=== PATIENT | female | born 1930 | race Caucasian/White ===

== ENCOUNTER 2017-06-23 12:20 | Emergency (ER) | payer MEDICARE, OTHER ==
--- NOTE | 2017-06-23 14:24 | ER Document Report ---
ED Medical Screen (RME) - General Chief Complaint: Dizziness Stated Complaint: DIZZINESS Time Seen by Provider: 06/23/17 14:18 TRAVEL OUTSIDE OF THE [place] IN LAST 30 DAYS: No - HPI Notes: 06/23/17 14:19 Patient is an 87-year-old female with a history of PAD, CHF, diabetes type 2, vertigo who presents to the ED complaining of feeling dizzy that began this morning when she woke up. Patient states that she did take some of her meclizine with minimal relief. Patient states that the dizziness is worsened with movement. Patient states that this is her third episode of this dizziness in the last 3 weeks. Patient was scheduled to see her primary care doctor for dizziness today it is exacerbated this morning and she needed to come to the emergency department. Patient states that she is also scheduled for an either a SI joint injection vs LESI on the right side tomorrow. Patient states that she has been eating and drinking without difficulties. She is urinating normally and having normal bowel movements. Patient states that she does have a stent placed in the artery in her left leg, but has not had any cardiac stents or bypass performed in the past. Denies any headache, fever, head injury , neck pain, changes in vision/speech/mentation/hearing, URI, sore throat, chest pain, palpitations, syncope, cough, shortness of breath, wheeze, dyspnea, abdominal pain, nausea/vomiting/diarrhea, urinary retention, dysuria, hematuria , saddle anesthesia, muscle paralysis/weakness, or rash. I have treated and performed a rapid initial assessment of this patient. A comprehensive ED assessment and evaluation of the patient, analysis of test results and completion of medical decision making process will be conducted by additional ED providers. PHYSICAL EXAMINATION: GENERAL: Well-appearing, well-nourished and in no acute distress. A&Ox4. Answers questions appropriately. Eyes: clear conjunctiva, PERRLA. LUNGS: Breath sounds clear to auscultation bilaterally and equal. No wheezes rales or rhonchi. HEART: Regular rate and rhythm without murmurs, rubs, gallops. Extremities: No cyanosis, clubbing, or edema b/l. NEUROLOGICAL: Normal speech. PSYCH: Normal mood, normal affect. - Related Data Allergies/Adverse Reactions: diclofenac sodium [From Voltaren] Allergy (Unknown, Verified 06/23/17 12:25) Past Medical History - Social History Chew tobacco use (# tins/day): No Frequency of alcohol use: None Drug Abuse: None - Past Medical History Cardiac Medical History: Reports: Hx Hypertension Endocrine Medical History: Reports: Hx Diabetes Mellitus Type 2 Renal/ Medical History: Denies: Hx Peritoneal Dialysis Musculoskeltal Medical History: Reports Hx Arthritis Past Surgical History: Reports: Hx Appendectomy, Hx Hysterectomy, Hx Orthopedic Surgery - left shoulder/left knee, Hx Tonsillectomy - Immunizations Hx Diphtheria, Pertussis, Tetanus Vaccination: Yes Physical Exam - Vital signs Vitals: Temp Pulse Resp BP Pulse Ox 97.6 F 59 L 18 127/55 H 99 06/23/17 12:29 06/23/17 12:29 06/23/17 12:29 06/23/17 12:29 06/23/17 12:29 Course - Vital Signs Vital signs: Temp Pulse Resp BP Pulse Ox 97.6 F 59 L 18 127/55 H 99 06/23/17 12:29 06/23/17 12:29 06/23/17 12:29 06/23/17 12:29 06/23/17 12:29
[2017-06-23 14:58] LABS: ABSOLUTE BASOPHILS # (AUTO) 0.1 10^3/uL (0.0-0.2); ABSOLUTE EOSINOPHILS # (AUTO) 0.3 10^3/uL (0.0-0.6); ABSOLUTE LYMPHOCYTES (AUTO) 2.6 10^3/uL (0.5-4.7); ABSOLUTE MONOCYTES (AUTO) 0.6 10^3/uL (0.1-1.4); ABSOLUTE NEUT (AUTO) 5.9 10^3/uL (1.7-8.2); BASOPHILS % (AUTO) 0.8 % (0-2); HEMATOCRIT 47.3 % (36.0-47.0); HEMOGLOBIN 15.8 g/dL (12.0-15.5); LYMPHOCYTES % (AUTO) 27.4 % (13-45); MEAN CORPUSCULAR HEMOGLOBIN 31.9 pg (27.0-33.4); MEAN CORPUSCULAR HGB CONC 33.5 g/dL (32.0-36.0); MEAN CORPUSCULAR VOLUME 95 fl (80-97); MONOCYTES % (AUTO) 5.8 % (3-13); PLATELET COUNT 137 10^3/uL (150-450); RED BLOOD COUNT 4.97 10^6/uL (3.72-5.28); RED CELL DISTRIBUTION WIDTH 12.9 % (11.5-14.0); TOTAL CELLS COUNTED % (AUTO) 100 %; WHITE BLOOD COUNT 9.4 10^3/uL (4.0-10.5)
[2017-06-23 15:01] LABS: ALANINE AMINOTRANSFERASE 17 U/L (9-52); ALBUMIN 4.4 g/dL (3.5-5.0); ALKALINE PHOSPHATASE 74 U/L (38-126); ANION GAP 8 (5-19); ASPARTATE AMINO TRANSFERASE 29 U/L (14-36); BILIRUBIN,DIRECT 0.5 mg/dL (0.0-0.4); BILIRUBIN,TOTAL 0.5 mg/dL (0.2-1.3); BLOOD UREA NITROGEN 25 mg/dL (7-20); CALCIUM 9.9 mg/dL (8.4-10.2); CARBON DIOXIDE 31 mmol/L (22-30); CHLORIDE 106 mmol/L (98-107); CREATINE KINASE 52 U/L (30-135); GLUCOSE 84 mg/dL (75-110); POTASSIUM 5.1 mmol/L (3.6-5.0)
[2017-06-23 15:11] LABS: CREATINE KINASE MB 1.37 ng/mL (<4.55)
[2017-06-23 15:12] LABS: TROPONIN I < 0.012 ng/mL
--- NOTE | 2017-06-23 15:55 | RADIOLOGY REPORT (SQ) ---
EXAM DESCRIPTION: CHEST SINGLE VIEW COMPLETED DATE/TIME: 06/23/2017 3:48 pm REASON FOR STUDY: dizziness COMPARISON: 02/11/2011 EXAM PARAMETERS: NUMBER OF VIEWS: One view. TECHNIQUE: Single frontal radiographic view of the chest acquired. RADIATION DOSE: NA LIMITATIONS: None. FINDINGS: LUNGS AND PLEURA: There is mild hyperexpansion of the lungs. There is no pulmonary infilt rate or pleural effusion. No mass is present. MEDIASTINUM AND HILAR STRUCTURES: No masses. Contour normal. HEART AND VASCULAR STRUCTURES: Heart normal in size. Normal vasculature. BONES: No acute findings. HARDWARE: None in the chest. OTHER: No other significant finding. IMPRESSION: Chronic lung changes with no acute cardiopulmonary disease. TECHNICAL DOCUMENTATION: JOB ID: [id number] [employer]- All Rights Reserved Reading location - IP/workstation name: [email or web address]
--- NOTE | 2017-06-23 15:59 | RADIOLOGY REPORT (SQ) ---
EXAM DESCRIPTION: CT HEAD WITHOUT COMPLETED DATE/TIME: 06/23/2017 3:30 pm REASON FOR STUDY: dizziness COMPARISON: July 2015 TECHNIQUE: Axial images acquired through the brain without intravenous contrast. Images reviewed wi th bone, brain and subdural windows. Images stored on PACS. All CT scanners at this facility use dose modulation, iterative reconstruction, and/or weight based d osing when appropriate to reduce radiation dose to as low as reasonably achievable (ALARA). [facility]: Dose Right [facility]: CareDose [facility]: Dose Right [facility]: Teradose 4D [facility]: [employer] RADIATION DOSE: CT Rad equipment meets quality standard of care and radiation dose reduction techniq ues were employed. CTDIvol: 64.6 mGy. DLP: 1034 mGy-cm. mGy. LIMITATIONS: None. FINDINGS: VENTRICLES: Normal size and contour. CEREBRUM: No masses. No hemorrhage. No midline shift. No evidence for acute infarction. Normal gra y/white matter differentiation. No areas of low density in the white matter. CEREBELLUM: No masses. No hemorrhage. No alteration of density. No evidence for acute infarction. EXTRAAXIAL SPACES: No fluid collections. No masses. ORBITS AND GLOBE: No intra- or extraconal masses. Normal contour of globe without masses. CALVARIUM: No fracture. PARANASAL SINUSES: No fluid or mucosal thickening. SOFT TISSUES: No mass or hematoma. OTHER: No other significant finding. IMPRESSION: NORMAL BRAIN CT WITHOUT CONTRAST. EVIDENCE OF ACUTE STROKE: NO. COMMENT: Quality ID # [id number]: Final reports with documentation of one or more dose reduction techniques (e.g., Automated exposure control, adjustment of the mA and/or kV according to patient size, use of iterative reconstruction technique) TECHNICAL DOCUMENTATION: JOB ID: [id number] [employer]- All Rights Reserved Reading location - IP/workstation name: [email or web address]
--- NOTE | 2017-06-23 19:23 | ER Document Report ---
ED General - General Chief Complaint: Dizziness Stated Complaint: DIZZINESS Time Seen by Provider: 06/23/17 14:18 Notes: Patient is an 87-year-old female who presents with 10 days of intermittent lightheadedness and near syncope worse today than the prior days. Patient reports a long-standing history of intermittent episodes in which she feels that she may pass out or become severely lightheaded. However she notes that they are normally not this persistent or this severe. At the time of my assessment she currently denies any ongoing symptoms. She states she feels well at this time. She is clear to state that these are not vertiginous symptoms but rather a sensation of dizziness, lightheadedness and feeling like she may pass out if she were to stand up. She has not seen her primary doctor regarding today's concerns. No recent medication adjustments. She denies any chest pain, shortness of breath, focal weakness, numbness, or ataxia. No head trauma. No vomiting. TRAVEL OUTSIDE OF THE [place] IN LAST 30 DAYS: No - Related Data Allergies/Adverse Reactions: diclofenac sodium [From Voltaren] Allergy (Unknown, Verified 06/23/17 12:25) Past Medical History - General Information source: Patient - Social History Smoking Status: Former Smoker Chew tobacco use (# tins/day): No Frequency of alcohol use: None Drug Abuse: None Lives with: Family Family History: Reviewed & Not Pertinent Patient has suicidal ideation: No Patient has homicidal ideation: No - Past Medical History Cardiac Medical History: Reports: Hx Hypertension Endocrine Medical History: Reports: Hx Diabetes Mellitus Type 2 Renal/ Medical History: Denies: Hx Peritoneal Dialysis Musculoskeltal Medical History: Reports Hx Arthritis Past Surgical History: Reports: Hx Appendectomy, Hx Hysterectomy, Hx Orthopedic Surgery - left shoulder/left knee, Hx Tonsillectomy - Immunizations Hx Diphtheria, Pertussis, Tetanus Vaccination: Yes Hx Pneumococcal Vaccination: 01/12/11 Review of Systems - Review of Systems Notes: Constitutional: Negative for fever. HENT: Negative for sore throat. Eyes: Negative for visual changes. Cardiovascular: Negative for chest pain. Positive for lightheadedness Respiratory: Negative for shortness of breath. Gastrointestinal: Negative for abdominal pain, vomiting or diarrhea. Genitourinary: Negative for dysuria. Musculoskeletal: Negative for back pain. Skin: Negative for rash. Neurological: Negative for headaches, weakness or numbness. 10 point ROS negative except as marked above and in HPI. Physical Exam - Vital signs Vitals: Temp Pulse Resp BP Pulse Ox 97.6 F 59 L 18 127/55 H 99 06/23/17 12:29 06/23/17 12:29 06/23/17 12:29 06/23/17 12:29 06/23/17 12:29 Interpretation: Bradycardic Notes: PHYSICAL EXAMINATION: GENERAL: Well-appearing, well-nourished and in no acute distress. HEAD: Atraumatic, normocephalic. EYES: Pupils equal round and reactive to light, extraocular movements intact, sclera anicteric, conjunctiva are normal. ENT: nares patent, oropharynx clear without exudates. Moderately dry mucous membranes. NECK: Normal range of motion, supple without lymphadenopathy LUNGS: Breath sounds clear to auscultation bilaterally and equal. No wheezes rales or rhonchi. HEART: Regular rate and rhythm without murmurs ABDOMEN: Soft, nontender, normoactive bowel sounds. No guarding, no rebound. No masses appreciated. EXTREMITIES: Normal range of motion, no pitting or edema. No cyanosis. NEUROLOGICAL: Face symmetric. Tongue protrudes midline. Extraocular motions intact. Pupils are 2 mm and equally reactive. Normal speech, mild gait instability no ataxia. 5 out of 5 strength in both the distal and proximal upper and lower extremities bilaterally. Sensation is grossly intact throughout. Finger to nose testing normal. Pronator drift normal. PSYCH: Normal mood, normal affect. SKIN: Warm, Dry, normal turgor, no rashes or lesions noted. Course - Re-evaluation Re-evalutation: 06/23/17 19:20 Patient presents with signs and symptoms most consistent with symptomatic bradycardia and near syncope. The patient's heart rate today has remained persistently in the low 50s despite the fact that she has not yet even taken her metoprolol succinate today. Patient has had intermittent similar symptoms over the last 10 days. Her clinical history is not consistent with acute vertigo as she denies any true vertiginous symptoms, does express her symptoms more as being a sensation of lightheadedness are about to pass out. She is repeatedly had similar symptoms over the last several years but never to this degree of severity. Laboratories, EKG, chest x-ray and a CT of the head obtained in triage are all unremarkable. The remainder of the patient's vitals are otherwise within normal limits. She has no focal neurologic deficits on examination including finger to nose, heel to rivera, and she is able to ambulate without significant ataxia. Patient does appear clinically dehydrated on examination but has tolerated oral intake without difficulties. I have instructed the patient to immediately discontinue metoprolol succinate while increasing her lisinopril from 5-10 mg. She does not have any history of dysrhythmia or A. fib to mandate a need for a beta-blockade at this time. However, I have encouraged her to contact her primary care doctor's office immediately in the morning to notify them of these medication recommendations and follow-up with her primary care doctor as they are the ones long-term following her for her blood pressure management. At this time will discharge with return precautions and follow-up recommendations. Verbal discharge instructions given a the bedside and opportunity for questions given. Medication warnings reviewed. Patient is in agreement with this plan and has verbalized understanding of return precautions and the need for primary care follow-up in the next 24-72 hours. - Vital Signs Vital signs: Temp Pulse Resp BP Pulse Ox 97.6 F 59 L 17 124/43 L 97 06/23/17 12:29 06/23/17 19:33 06/23/17 20:01 06/23/17 20:01 06/23/17 20:01 - Laboratory Result Diagrams: 06/23/17 11:58 06/23/17 11:58 Laboratory results interpreted by me: 06/23/17 06/23/17 11:58 11:58 Hgb 15.8 H Hct 47.3 H Plt Count 137 L Potassium 5.1 H Carbon Dioxide 31 H BUN 25 H Est GFR ( Amer) 55 L Est GFR (Non-Af Amer) 45 L Direct Bilirubin 0.5 H - Diagnostic Test Radiology reviewed: Image reviewed, Reports reviewed Radiology results interpreted by me: 06/23/17 19:22 CT head: No acute intracranial bleed or mass Chest x-ray: No acute infiltrate or pneumothorax - EKG Interpretation by Me Additional EKG results interpreted by me: 06/24/17 04:43 Sinus bradycardia. Rate 59. No ST elevations or depressions. QTC is 440. Discharge - Discharge Clinical Impression: Near syncope, Symptomatic bradycardia Condition: Stable Disposition: HOME, SELF-CARE Additional Instructions: Please make the following medication adjustments: 1.) STOP metoprolol succinate 25 mg daily 2.) INCREASE lisinopril from 5mg daily to 10mg daily Keep all of your other medications as prescribed by your primary doctor. Please contact your primary doctor in the morning to discuss your visits to the emergency department today as well as the above medication adjustments. Please return if you have persistent vomiting, chest pain, shortness of breath, inability to walk, weakness, numbness, confusion, or any other symptoms that are worrisome to you. Referrals: KRYSTAL HOLLAND MD [Primary Care Provider] - Follow up tomorrow
[2017-06-23 20:18] VITALS: BP 124/43
--- NOTE | 2017-06-24 07:31 | EKG REPORT ---
SEVERITY:- BORDERLINE ECG - SINUS RHYTHM POOR R WAVE PROGRESSION ANTERIOR LEADS, CONSIDER OLD ANT WI VS LEAD PLACEMENT ERROR : Confirmed by: Juanjose Mcintosh MD 24-Jun-2017 07:30:56
== END 2017-06-23 20:18 | disposition home or self-care (01) ==
LOC: ER 12:20
DX: R00.1 Bradycardia, unspecified (principal); R55 Syncope and collapse; E11.9 Type 2 diabetes mellitus without complications; I10 Essential (primary) hypertension; Z79.899 Other long term (current) drug therapy; Z88.6 Allergy status to analgesic agent; Z87.891 Personal history of nicotine dependence
CPT/HCPCS: 36415; 70450; 71045; 80053; 82550; 82553; 84484; 85025; 93005; 93010; 99285

== ENCOUNTER 2018-08-13 11:37 | Inpatient (IN) | payer MEDICARE, OTHER ==
[2018-08-13] MEDS ORDERED: IPRATROPIUM/ALBUTEROL 0.5-2.5 MG/3 ML AMPUL NEB ONE (12:06)
--- NOTE | 2018-08-13 12:10 | ER Document Report ---
ED Medical Screen (RME) - General Chief Complaint: Shortness Of Breath Stated Complaint: DIFFICULTY BREATHING Time Seen by Provider: 08/13/18 11:56 Primary Care Provider: KRYSTAL HOLLAND MD [Primary Care Provider] - Follow up as needed Mode of Arrival: Ambulatory Information source: Patient TRAVEL OUTSIDE OF THE [place] IN LAST 30 DAYS: No - HPI Patient complains to provider of: sob Notes: 08/13/18 12:08 Patient is here with complaints of shortness of breath. No chest pain. No leg swelling. Exam No distress, nontoxic-appearing. Respiratory expiratory wheezing with crackles throughout. Heart sounds normal. Trace pitting edema to the bilateral lower extremities. Plan CBC, CPK CK-MB, troponin, CMP, EKG, chest x-ray, BNP An initial examination was made on the patient as part of the triage process, and it was determined a more comprehensive evaluation was necessary. Initial labs were ordered and patient was transferred to another provider in the ED who assumed care and finished evaluation and plan. - Related Data Allergies/Adverse Reactions: diclofenac sodium [From Voltaren] Allergy (Unknown, Verified 08/13/18 11:38) Past Medical History - Past Medical History Cardiac Medical History: Reports: Hx Congestive Heart Failure, Hx Hypertension Endocrine Medical History: Reports: Hx Diabetes Mellitus Type 2 Renal/ Medical History: Denies: Hx Peritoneal Dialysis Musculoskeltal Medical History: Reports Hx Arthritis Past Surgical History: Reports: Hx Appendectomy, Hx Hysterectomy, Hx Orthopedic Surgery - left shoulder/left knee, Hx Tonsillectomy - Immunizations Hx Diphtheria, Pertussis, Tetanus Vaccination: Yes Physical Exam - Vital signs Vitals: Temp Pulse Resp BP Pulse Ox 97.9 F 76 18 138/34 H 94 08/13/18 11:43 08/13/18 11:43 08/13/18 11:43 08/13/18 11:43 08/13/18 11:43 Course - Vital Signs Vital signs: Temp Pulse Resp BP Pulse Ox 97.9 F 76 18 138/34 H 94 08/13/18 11:43 08/13/18 11:43 08/13/18 11:43 08/13/18 11:43 08/13/18 11:43 Doctor's Discharge - Discharge Referrals: KRYSTAL HOLLAND MD [Primary Care Provider] - Follow up as needed
[2018-08-13 12:40] LABS: ABSOLUTE BASOPHILS # (AUTO) 0.1 10^3/uL (0.0-0.2); ABSOLUTE EOSINOPHILS # (AUTO) 0.7 10^3/uL (0.0-0.6); ABSOLUTE LYMPHOCYTES (AUTO) 4.3 10^3/uL (0.5-4.7); ABSOLUTE MONOCYTES (AUTO) 0.9 10^3/uL (0.1-1.4); ABSOLUTE NEUT (AUTO) 5.9 10^3/uL (1.7-8.2); BASOPHILS % (AUTO) 0.9 % (0-2); EOSINOPHILS % (AUTO) 5.6 % (0-6); HEMATOCRIT 41.2 % (36.0-47.0); HEMOGLOBIN 13.4 g/dL (12.0-15.5); LYMPHOCYTES % (AUTO) 36.1 % (13-45); MEAN CORPUSCULAR HEMOGLOBIN 31.2 pg (27.0-33.4); MEAN CORPUSCULAR HGB CONC 32.5 g/dL (32.0-36.0); MEAN CORPUSCULAR VOLUME 96 fl (80-97); MONOCYTES % (AUTO) 7.9 % (3-13); PLATELET COUNT 146 10^3/uL (150-450); RED CELL DISTRIBUTION WIDTH 13.6 % (11.5-14.0); SEGMENTED NEUTROPHILS % (AUTO) 49.5 % (42-78); TOTAL CELLS COUNTED % (AUTO) 100 %; WHITE BLOOD COUNT 11.9 10^3/uL (4.0-10.5)
[2018-08-13 13:02] LABS: ALANINE AMINOTRANSFERASE 19 U/L (9-52); ALBUMIN 3.7 g/dL (3.5-5.0); ALKALINE PHOSPHATASE 77 U/L (38-126); ANION GAP 9 (5-19); ASPARTATE AMINO TRANSFERASE 23 U/L (14-36); BILIRUBIN,DIRECT 0.3 mg/dL (0.0-0.4); BILIRUBIN,TOTAL 0.6 mg/dL (0.2-1.3); BLOOD UREA NITROGEN 41 mg/dL (7-20); CALCIUM 9.7 mg/dL (8.4-10.2); CARBON DIOXIDE 26 mmol/L (22-30); CHLORIDE 107 mmol/L (98-107); CREATINE KINASE 51 U/L (30-135); GLUCOSE 82 mg/dL (75-110); POTASSIUM 5.8 mmol/L (3.6-5.0); SODIUM 142.2 mmol/L (137-145); TOTAL PROTEIN 6.9 g/dL (6.3-8.2)
[2018-08-13 13:14] LABS: CREATINE KINASE MB 1.55 ng/mL (<4.55); NT PRO BNP 465 pg/mL (<450)
[2018-08-13 13:15] LABS: TROPONIN I < 0.012 ng/mL
--- NOTE | 2018-08-13 13:19 | RADIOLOGY REPORT (SQ) ---
EXAM DESCRIPTION: CHEST SINGLE VIEW COMPLETED DATE/TIME: 08/13/2018 1:07 pm REASON FOR STUDY: SOB COMPARISON: 06/23/2017 EXAM PARAMETERS: NUMBER OF VIEWS: One view. TECHNIQUE: Single frontal radiographic view of the chest acquired. RADIATION DOSE: NA LIMITATIONS: None. FINDINGS: LUNGS AND PLEURA: Hyperinflation with minimal bibasilar fibrotic opacity similar to prior. MEDIASTINUM AND HILAR STRUCTURES: No masses. Contour normal. HEART AND VASCULAR STRUCTURES: Heart normal in size. Normal vasculature. BONES: No acute findings. HARDWARE: None in the chest. OTHER: No other significant finding. IMPRESSION: No acute abnormality of the lungs. Redemonstrated pulmonary hyperinflation with minimal bibasilar fibrotic opacity similar to prior. TECHNICAL DOCUMENTATION: JOB ID: [id number] [employer]- All Rights Reserved Reading location - IP/workstation name: [email or web address]
[2018-08-13] MEDS ORDERED: FUROSEMIDE INJ/PF 20 MG/2 ML SDV IV ONE (15:26)
[2018-08-13] MEDS ORDERED: METHYLPREDNISOLONE INJ 125 MG/2 ML SDV IV ONE (15:26)
--- NOTE | 2018-08-13 15:33 | ER Document Report ---
ED Respiratory Problem - General Chief Complaint: Shortness Of Breath Stated Complaint: DIFFICULTY BREATHING Time Seen by Provider: 08/13/18 11:56 Primary Care Provider: KRYSTAL HOLLAND MD [Primary Care Provider] - Follow up as needed Mode of Arrival: Ambulatory Information source: Patient, Friend Notes: Patient is an 88-year-old female comes emergency room complaining of increasing shortness of breath. Patient states that she was outside yesterday piddling in the yard. She went to bed last night she felt a little short of breath when she woke up this morning she was increased shortness of breath. She try to get into her primary care doctor but they were informed that the office was full and they could not work her in. She talked to his nurse who ended up sending her to the emergency room. Patient has a significant past medical history but no history related to respiratory. With the exception of a history of congestive heart failure. She does not have any history of renal failure as well. She does have a history of hypertension. But no cardiac history other than CHF. She states that back in November her doctor put her on some medication for congestion and she got a little better for a while but the congestion came back after the medic ations and she started going downhill with her breathing problems at that point with acute exacerbation over the last 24 hours. She denies any chest pain nausea vomiting or diarrhea. She denies any cough. TRAVEL OUTSIDE OF THE [place] IN LAST 30 DAYS: No - HPI Patient complains to provider of: CHF Duration: Better Quality of pain: No pain Severity: Mild Pain Level: 0 Context: Hx CHF Short of Breath: Moderate Chest pain/discomfort: Constant Sputum amount: None Associated symptoms: Ankle/leg swelling, Congestion, Difficulty breathing, Short of breath Similar symptoms previously: Yes Recently seen / treated by doctor: No - Related Data Allergies/Adverse Reactions: diclofenac sodium [From Voltaren] Allergy (Unknown, Verified 08/13/18 11:38) Past Medical History - General Information source: Patient, Friend - Social History Smoking Status: Former Smoker Cigarette use (# per day): No Chew tobacco use (# tins/day): No Smoking Education Provided: No Frequency of alcohol use: None Drug Abuse: None Lives with: Alone Family History: Reviewed & Not Pertinent Patient has suicidal ideation: No Patient has homicidal ideation: No - Past Medical History Cardiac Medical History: Reports: Hx Congestive Heart Failure, Hx Hypertension Endocrine Medical History: Reports: Hx Diabetes Mellitus Type 2 Renal/ Medical History: Denies: Hx Peritoneal Dialysis Musculoskeletal Medical History: Reports Hx Arthritis Past Surgical History: Reports: Hx Appendectomy, Hx Hysterectomy, Hx Orthopedic Surgery - left shoulder/left knee, Hx Tonsillectomy - Immunizations Hx Diphtheria, Pertussis, Tetanus Vaccination: Yes Hx Pneumococcal Vaccination: 01/12/11 Review of Systems - Review of Systems Constitutional: No symptoms reported EENT: No symptoms reported Cardiovascular: No symptoms reported Respiratory: See HPI, Short of breath, Wheezing Gastrointestinal: No symptoms reported Genitourinary: No symptoms reported Female Genitourinary: No symptoms reported Musculoskeletal: No symptoms reported Skin: No symptoms reported Hematologic/Lymphatic: No symptoms reported Neurological/Psychological: No symptoms reported -: Yes All other systems reviewed and negative Physical Exam - Vital signs Vitals: Temp Pulse Resp BP Pulse Ox 97.9 F 76 18 138/34 H 94 08/13/18 11:43 08/13/18 11:43 08/13/18 11:43 08/13/18 11:43 08/13/18 11:43 Interpretation: Hypertensive - Notes Notes: PHYSICAL EXAMINATION: GENERAL: Well-appearing, well-nourished and in no acute distress. HEAD: Atraumatic, normocephalic. EYES: Pupils equal round and reactive to light, extraocular movements intact, conjunctiva are normal. ENT: Nares patent, oropharynx clear without exudates. Moist mucous membranes. NECK: Normal range of motion, supple without lymphadenopathy LUNGS: Auscultation patient's lung castañeda show she has bilateral breath sounds breath sounds are decreased throughout with inspiratory expiratory wheeze noted there is very faint. Also noted is rales scattered throughout all lung castañeda. More prominent in the bases however. No rhonchi is noted at this time. HEART: Regular rate and rhythm without murmurs ABDOMEN: Soft, nontender, nondistended abdomen. No guarding, no rebound. No masses appreciated. Female : deferred Musculoskeletal: Examination of lower extremity shows the left side ankles to knee have 1+ pitting edema right side is normal in appearance. Patient has good range of motion of all the lower extremities as well as upper extremities with good [employer] president [employer] strength in bilateral upper extremities and good strength in the lower extremities against resistance. Vascular exam is also normal at this time with 2+ dorsalis pedal pulses bilaterally as well as good ulnar and radial pulses in the upper extremities. NEUROLOGICAL: Normal speech, normal gait. Normal sensory, motor exams PSYCH: Normal mood, normal affect. SKIN: Warm, Dry, normal turgor, no rashes or lesions noted. Course - Vital Signs Vital signs: Temp Pulse Resp BP Pulse Ox 97.9 F 76 23 H 128/55 H 96 08/13/18 11:43 08/13/18 11:43 08/13/18 20:01 08/13/18 20:01 08/13/18 20:01 - Laboratory Result Diagrams: 08/13/18 12:20 08/13/18 12:20 Laboratory results interpreted by me: 08/13/18 08/13/18 08/13/18 12:20 12:20 12:20 WBC 11.9 H Plt Count 146 L Absolute Eosinophils 0.7 H ABG pO2 ABG HCO3 ABG Total CO2 ABG O2 Saturation Potassium 5.8 H BUN 41 H Creatinine 1.52 H Est GFR ( Amer) 39 L Est GFR (Non-Af Amer) 32 L NT-Pro-B Natriuret Pep 465 H Ur Leukocyte Esterase 08/13/18 08/13/18 16:55 18:22 WBC Plt Count Absolute Eosinophils ABG pO2 55.4 L ABG HCO3 24.4 H ABG Total CO2 25.8 H ABG O2 Saturation 87.8 L Potassium BUN Creatinine Est GFR ( Amer) Est GFR (Non-Af Amer) NT-Pro-B Natriuret Pep Ur Leukocyte Esterase LARGE H Discharge - Discharge Clinical Impression: Hypoxemia, COPD exacerbation UTI (urinary tract infection) Qualifiers: Urinary tract infection type: site unspecified Hematuria presence: without hematuria Qualified Code(s): N39.0 - Urinary tract infection, site not specified CHF (congestive heart failure) Qualifiers: Heart failure type: unspecified Heart failure chronicity: acute Qualified Code(s): I50.9 - Heart failure, unspecified Condition: Stable Disposition: ADMITTED INPATIENT Admitting Provider: Tiffanie (Hospitalist) Unit Admitted: Telemetry Referrals: KRYSTAL HOLLAND MD [Primary Care Provider] - Follow up as needed
[2018-08-13] MEDS ORDERED: NORMAL SALINE 1000 ML 500 ML IV ONE (16:13)
[2018-08-13 18:10] LABS: APPEARANCE,URINE SLIGHTLY-CLOUDY; BILIRUBIN,URINE NEGATIVE (NEGATIVE); COLOR,URINE YELLOW; GLUCOSE, URINE NEGATIVE (NEGATIVE); KETONES,URINE NEGATIVE (NEGATIVE); LEUKOCYTE ESTERASE,URINE LARGE (NEGATIVE); NITRITE,URINE NEGATIVE (NEGATIVE); PROTEIN,URINE NEGATIVE (NEGATIVE); URINE SPECIFIC GRAVITY 1.012; UROBILINOGEN,URINE NEGATIVE mg/dL (<2.0)
[2018-08-13 18:31] LABS: ARTERIAL BLOOD BASE EXCESS -1.1 mmol/L; ARTERIAL BLOOD H2CO3 1.32 mmol/L (1.05-1.35); ARTERIAL BLOOD HCO3 24.4 mmol/L (20-24); ARTERIAL BLOOD O2 SATURATION 87.8 % (94-98); ARTERIAL BLOOD PCO2 43.7 mmHg (35-45); ARTERIAL BLOOD PH 7.37 (7.35-7.45); ARTERIAL BLOOD PO2 55.4 mmHg (80-100); ARTERIAL BLOOD TOTAL CO2 25.8 mmol/L (21-25)
[2018-08-13 18:34] LABS: ARTERIAL BLOOD FIO2 ROOM AIR
[2018-08-13] MEDS ORDERED: CEFTRIAXONE 1 GM/D5W RTU 1 GM/50 ML RTUPB IV ONE (19:27)
[2018-08-13] MEDS ORDERED: ONDANSETRON HCL INJ/PF 4 MG/2 ML SDV IV PRN (20:17)
[2018-08-13] MEDS ORDERED: MAGNESIUM HYDROXIDE SUSP 30 ML UDCUP PO PRN (20:17)
[2018-08-13] MEDS ORDERED: TEMAZEPAM 7.5 MG CAPSULE PO PRN (20:17)
[2018-08-13] MEDS ORDERED: MAG HYDROX/AL HYDROX/SIMETH SUSP 30 ML UDCUP PO PRN (20:17)
[2018-08-13] MEDS ORDERED: NALBUPHINE HCL INJ 10 MG/1 ML AMPULE IV PRN (20:23)
[2018-08-13] MEDS ORDERED: HYDRALAZINE HCL INJ/PF 20 MG/1 ML SDV IV PRN (20:23)
[2018-08-13] MEDS ORDERED: ACETAMINOPHEN 325 MG TABLET PO PRN (20:23)
[2018-08-13] MEDS ORDERED: DEXTROSE 40% GEL 15 GM TUBE X 2 PO PRN (21:00)
[2018-08-13] MEDS ORDERED: DEXTROSE 40% GEL 15 GM TUBE PO PRN (21:00)
[2018-08-13] MEDS ORDERED: GLUCAGON,HUMAN RECOMB 1 MG INJ IM PRN (21:00)
[2018-08-13] MEDS ORDERED: DEXTROSE 50%-WATER SYRINGE 12.5 GM/25 ML DOSE IV PRN (21:00)
[2018-08-13] MEDS ORDERED: DEXTROSE 50%-WATER SYRINGE 25 GM/50 ML DOSE IV PRN (21:00)
[2018-08-13] MEDS ORDERED: LEVALBUTEROL HCL NEB 0.63 MG/3 ML AMPUL NEB PRN (21:05)
[2018-08-13] MEDS: METHYLPREDNISOLONE INJ 40 MG/1 ML SDV IV SCH (22:41)
[2018-08-13] MEDS: INSULIN REG, HUMAN 100 UNIT/ML 3 ML VIAL (PYX) SUBCUT SCH (22:41)
[2018-08-13] MEDS: HEPARIN SOD (PORCINE) 5,000 UNIT/ML 1 ML SYRINGE SUBCUT SCH (22:41)
--- NOTE | 2018-08-13 23:20 | EKG REPORT ---
SEVERITY:- ABNORMAL ECG - SINUS RHYTHM CONSIDER ANTEROSEPTAL INFARCT : Confirmed by: Rex Le 13-Aug-2018 23:19:37
--- NOTE | 2018-08-13 23:34 | PDOC H&P ---
History of Present Illness Admission Date/PCP: 08/13/2018 KRYSTAL HOLLAND MD Patient complains of: Dyspnea History of Present Illness: ABRAHAM GREEN is a 88 year old female who presented to the emergency room with a 2-month history of dyspnea. She admits to chronic mild dyspnea worsened by exertion over the last 3 months. She further admits to developing an increased level of dyspnea with exertion while she was outside working in her yard on the day prior to admission. Her dyspnea persisted and increased overnight and she was experiencing moderately severe dyspnea at rest on the morning of admission. She contacted her primary care provider who was unable to see her and sent her to the emergency room. She admits prior similar symptoms related to congestive heart failure and she acknowledges that she was treated with medication for congestion 2 months ago which seemed to improve her state for short time but her symptoms returned after that course of treatment and p ersisted until suddenly worsening on the day prior to admission. She denies prior similar episodes and she has not identified any other aggravating or ameliorating factors for her dyspnea. In the emergency room she was found to have hypoxic respiratory failure and was also noted to have stage III renal failure with a BNP of 465. With these findings patient was admitted to the hospital for further evaluation and treatment. Past Medical History Cardiac Medical History: Reports: Hypertension, Peripheral Vascular Disease - Blocked artery in the right leg with history of claudication, Other - Broken heart syndrome Pulmonary Medical History: Denies: Asthma, Chronic Obstructive Pulmonary Disease (COPD), Intubation, Respiratory Failure EENT Medical History: Reports: Eyes - Uses prescription glasses Denies: Ears - Hearing aids Neurological Medical History: Denies: Hemorrhagic CVA, Ischemic CVA, Seizures Endocrine Medical History: Reports: Diabetes Mellitus Type 2 Denies: Diabetes Mellitus Type 1, Hyperthyroidism, Hypothyroidism, Obesity Renal/ Medical History: Reports: Chronic Kidney Disease Denies: Nephrolithiasis Malignancy Medical History: Reports: None GI Medical History: Denies: Cirrhosis, Hepatitis Musculoskeltal Medical History: Reports: Arthritis, Other - Ambulates with a cane or rolling walker Denies: Gout Skin Medical History: Denies: Eczema, Psoriasis Psychiatric Medical History: Reports: Tobacco Dependency Denies: Alcohol Dependency, Substance Abuse Traumatic Medical History: Reports: None Hematology: Denies: Anemia, Bleeding Tendencies Infectious Medical History: Reports: None Past Surgical History Past Surgical History: Reports: Appendectomy, Hysterectomy, Orthopedic Surgery - left shoulder/left knee, Tonsillectomy Social History Information Source: Patient Lives with: Alone Smoking Status: Former Smoker Frequency of Alcohol Use: None Hx Recreational Drug Use: No Drugs: None Hx Prescription Drug Abuse: No - Advance Directive Resuscitation Status: Full Code Surrogate healthcare decision maker:: Naomie Green Family History Family History: DM, Malignancy. denies: CAD, Hypertension Parental Family History Reviewed: Yes Children Family History Reviewed: Yes Sibling(s) Family History Reviewed.: Yes Medication/Allergy Home Medications: Aspirin [Aspirin 81 mg Chewable Tablet] 162 mg PO DAILY 02/11/11 Folic Acid 0.4 mg PO DAILY 02/11/11 Hydroxychloroquine Sulfate [Plaquenil 200 Mg Tablet] 200 mg PO DAILY 02/11/11 Multivitamins W-Minerals/Lut [Centrum Silver Tablet] 1 each PO DAILY 02/11/11 Potassium Chloride [Klor-Con 10 Meq Tablet.sa] 10 meq PO DAILY 02/11/11 Glipizide [Glipizide ER] 5 mg PO DAILY 12/01/13 Lisinopril 10 mg PO DAILY 12/01/13 Celecoxib [Celebrex 200 mg Capsule] 200 mg PO DAILY 08/13/18 Gabapentin [Neurontin 300 mg Capsule] 300 mg PO Q12 08/13/18 Olopatadine HCl [Patanol 0.1% Oph Soln 5 Ml Bottle] 1 drop OU BID 08/13/18 Allergies/Adverse Reactions: diclofenac sodium [From Voltaren] Allergy (Unknown, Verified 08/13/18 11:38) Review of Systems Constitutional: ABSENT: chills, fever(s) Eyes: ABSENT: visual disturbances, other - Eye pain Ears: ABSENT: hearing changes, other - Ear pain Nose, Mouth, and Throat: ABSENT: mouth pain, sore throat Cardiovascular: PRESENT: as per HPI, dyspnea on exertion - Worsened since yesterday, other - Occasional claudication with significant activity. ABSENT: chest pain, edema, orthropnea, palpitations Respiratory: PRESENT: as per HPI, dyspnea - Dyspnea at rest today. ABSENT: cough Gastrointestinal: ABSENT: abdominal pain, constipation, diarrhea, nausea, vomiting Genitourinary: ABSENT: dysuria, hematuria Musculoskeletal: ABSENT: back pain, joint swelling, muscle weakness Integumentary: ABSENT: pruritus, rash Neurological: ABSENT: confusion, convulsions, focal weakness, memory loss, syncope Psychiatric: ABSENT: anxiety, depression Endocrine: ABSENT: cold intolerance, heat intolerance Hematologic/Lymphatic: ABSENT: easy bleeding, easy bruising Physical Exam Vital Signs: Temp Pulse Resp BP Pulse Ox 97.9 F 76 20 111/82 95 08/13/18 11:43 08/13/18 11:43 08/13/18 18:00 08/13/18 17:04 08/13/18 17:04 Intake & Output 08/11/18 08/12/18 08/13/18 23:59 23:59 23:59 Weight 65 kg General appearance: PRESENT: no acute distress, cooperative, other - On O2 via nasal cannula Head exam: PRESENT: atraumatic, normocephalic Eye exam: ABSENT: conjunctival injection, scleral icterus Ear exam: PRESENT: normal external ear exam. ABSENT: bleeding, drainage Mouth exam: PRESENT: dry mucosa, neck supple Neck exam: ABSENT: JVD, thyromegaly, tracheal deviation Respiratory exam: PRESENT: decreased breath sounds - Mild decreased breath sounds throughout all [place] consistent with mild to moderate COPD, prolonged expiratory phas - Moderately prolonged expiratory phase in all castañ[place], symmetrical, wheezes - Expiratory wheezes present in all castañeda with. ABSENT: accessory muscle use, retraction Cardiovascular exam: PRESENT: RRR. ABSENT: clicks, gallop, rubs Pulses: PRESENT: normal radial pulses. ABSENT: normal dorsalis pedis pul - Decreased bilateral dorsalis pedis and posterior tibial pulses, slightly cool bilateral lower extremities Vascular exam: PRESENT: normal capillary refill. ABSENT: pallor GI/Abdominal exam: PRESENT: normal bowel sounds, soft Rectal exam: PRESENT: deferred Extremities exam: ABSENT: joint swelling, pedal edema Musculoskeletal exam: PRESENT: full ROM, normal inspection Neurological exam: PRESENT: alert, oriented to person, oriented to place, oriented to time, oriented to situation, CN II-XII grossly intact. ABSENT: motor sensory deficit Psychiatric exam: PRESENT: appropriate affect, normal mood Skin exam: PRESENT: dry, intact, warm. ABSENT: jaundice, rash, urticaria Results Laboratory Results: 08/13/18 12:20 08/13/18 12:20 08/13/18 08/13/18 08/13/18 12:20 12:20 16:55 WBC 11.9 H RBC 4.30 Hgb 13.4 Hct 41.2 MCV 96 MCH 31.2 MCHC 32.5 RDW 13.6 Plt Count 146 L Seg Neutrophils % 49.5 Lymphocytes % 36.1 Monocytes % 7.9 Eosinophils % 5.6 Basophils % 0.9 Absolute Neutrophils 5.9 Absolute Lymphocytes 4.3 Absolute Monocytes 0.9 Absolute Eosinophils 0.7 H Absolute Basophils 0.1 Carbonic Acid Cancelled HCO3/H2CO3 Ratio Cancelled ABG pH Cancelled ABG pCO2 Cancelled ABG pO2 Cancelled ABG HCO3 Cancelled ABG O2 Saturation Cancelled ABG Base Excess Cancelled FiO2 Cancelled Sodium 142.2 Potassium 5.8 H Chloride 107 Carbon Dioxide 26 Anion Gap 9 BUN 41 H Creatinine 1.52 H Est GFR ( Amer) 39 L Est GFR (Non-Af Amer) 32 L Glucose 82 Calcium 9.7 Total Bilirubin 0.6 AST 23 ALT 19 Alkaline Phosphatase 77 Total Protein 6.9 Albumin 3.7 Urine Color Urine Appearance Urine pH Ur Specific [place] Urine Protein Urine Glucose (UA) Urine Ketones Urine Blood Urine Nitrite Ur Leukocyte Esterase Urine WBC (Auto) Urine RBC (Auto) 08/13/18 08/13/18 16:55 18:22 WBC RBC Hgb Hct MCV MCH MCHC RDW Plt Count Seg Neutrophils % Lymphocytes % Monocytes % Eosinophils % Basophils % Absolute Neutrophils Absolute Lymphocytes Absolute Monocytes Absolute Eosinophils Absolute Basophils Carbonic Acid 1.32 HCO3/H2CO3 Ratio 18:1 ABG pH 7.37 ABG pCO2 43.7 ABG pO2 55.4 L ABG HCO3 24.4 H ABG O2 Saturation 87.8 L ABG Base Excess -1.1 FiO2 ROOM AIR Sodium Potassium Chloride Carbon Dioxide Anion Gap BUN Creatinine Est GFR ( Amer) Est GFR (Non-Af Amer) Glucose Calcium Total Bilirubin AST ALT Alkaline Phosphatase Total Protein Albumin Urine Color YELLOW Urine Appearance SLIGHTLY-CLOUDY Urine pH 5.0 Ur Specific [place] 1.012 Urine Protein NEGATIVE Urine Glucose (UA) NEGATIVE Urine Ketones NEGATIVE Urine Blood NEGATIVE Urine Nitrite NEGATIVE Ur Leukocyte Esterase LARGE H Urine WBC (Auto) 24 Urine RBC (Auto) 3 08/13/18 08/13/18 08/13/18 12:20 12:20 12:20 Creatine Kinase 51 CK-MB (CK-2) 1.55 Troponin I < 0.012 Cancelled NT-Pro-B Natriuret Pep 465 H Impressions: Chest X-Ray 05/02/19 12:05 IMPRESSION: No acute abnormality of the lungs. Redemonstrated pulmonary hyperinflation with minimal bibasilar fibrotic opacity similar to prior. Assessment and Plan - Diagnosis (1) Acute respiratory failure with hypoxia Is this a current diagnosis for this admission?: Yes Plan: Patient treated with supplemental oxygen as required for correction of her hypoxic. She will be monitored with continuous oxygen saturation monitor and blood gases as appropriate. (2) Acute exacerbation of chronic obstructive pulmonary disease (COPD) Is this a current diagnosis for this admission?: Yes Plan: Patient be treated with an aggressive pulmonary toilet utilizing nebulized Pulmicort, Xopenex and Atrovent. She will also receive Solu-Medrol intravenously and supportive oxygen as required. She will be monitored with a daily CBC and metabolic profile with a magnesium level. Repeat chest x-rays will be obtained as needed. (3) Acute on chronic renal insufficiency Is this a current diagnosis for this admission?: Yes Plan: Patient will be treated with lactated Ringer's for gentle rehydration and her metabolic profile will be followed on a daily basis along with a magnesium level. (4) Hypertension Qualifiers: Hypertension type: essential hypertension Qualified Code(s): I10 - Essential (primary) hypertension Is this a current diagnosis for this admission?: Yes Plan: Patient will be continued on her current antihypertensive/CHF medications as prescribed an outpatient basis with changes made by necessity due to formulary constrictions or changes due to her current medical situation. Her vital signs were monitored regularly during her hospital course. (5) Diabetes mellitus type 2 in nonobese Is this a current diagnosis for this admission?: Yes Plan: Patient will be treated with a diabetic diet and continued on her current glycemic control regiment. Hemoglobin A1c will be obtained to evaluate the eff icacy of current therapy. - Time Time Spent with patient: 35 or more minutes Medications reviewed and adjusted accordingly: Yes Anticipated discharge: Home - Inpatient Certification Based on my medical assessment, after consideration of the patient's comorbidities, presenting symptoms, or acuity I expect that the services needed warrant INPATIENT care.: Yes I certify that my determination is in accordance with my understanding of Medicare's requirements for reasonable and necessary INPATIENT services [42 CFR 412.3e].: Yes Medical Necessity: Significant Comorbidiites Make Outpatient Treatment Too Risky, Need Close Monitoring Due to Risk of Patient Decompensation, Need For IV Fluids, Need for Nebulizer Therapy and Monitoring of Response, Risk of Complication if Not Cared For in Hospital
[2018-08-14] MEDS: LEVALBUTEROL HCL NEB 1.25 MG/3 ML AMPUL NEB SCH ×4 (00:13→23:54)
[2018-08-14] MEDS: IPRATROPIUM BROMIDE 0.02% NEB 0.5 MG/2.5 ML AMPUL NEB SCH ×4 (00:13→23:54)
[2018-08-14] MEDS: RINGERS SOLUTION,LACTATED 1,000 ML IV PRN ×2 (02:00→14:28)
[2018-08-14] MEDS: HEPARIN SOD (PORCINE) 5,000 UNIT/ML 1 ML SYRINGE SUBCUT SCH ×3 (05:56→22:09)
[2018-08-14] MEDS: METHYLPREDNISOLONE INJ 40 MG/1 ML SDV IV SCH ×3 (06:00→22:15)
[2018-08-14] MEDS: PANTOPRAZOLE SODIUM 40 MG TABLET.DR PO SCH (06:01)
[2018-08-14 06:52] LABS: ABSOLUTE LYMPHOCYTES (AUTO) 1.1 10^3/uL (0.5-4.7); ABSOLUTE MONOCYTES (AUTO) 0.1 10^3/uL (0.1-1.4); ABSOLUTE NEUT (AUTO) 8.1 10^3/uL (1.7-8.2); BASOPHILS % (AUTO) 0.2 % (0-2); HEMATOCRIT 38.9 % (36.0-47.0); HEMOGLOBIN 12.9 g/dL (12.0-15.5); LYMPHOCYTES % (AUTO) 11.4 % (13-45); MEAN CORPUSCULAR HEMOGLOBIN 31.5 pg (27.0-33.4); MEAN CORPUSCULAR HGB CONC 33.1 g/dL (32.0-36.0); MEAN CORPUSCULAR VOLUME 95 fl (80-97); MONOCYTES % (AUTO) 0.8 % (3-13); PLATELET COUNT 143 10^3/uL (150-450); RED BLOOD COUNT 4.09 10^6/uL (3.72-5.28); RED CELL DISTRIBUTION WIDTH 13.3 % (11.5-14.0); SEGMENTED NEUTROPHILS % (AUTO) 87.6 % (42-78); TOTAL CELLS COUNTED % (AUTO) 100 %; WHITE BLOOD COUNT 9.2 10^3/uL (4.0-10.5)
[2018-08-14 07:22] LABS: ANION GAP 8 (5-19); BLOOD UREA NITROGEN 46 mg/dL (7-20); CALCIUM 9.2 mg/dL (8.4-10.2); CARBON DIOXIDE 25 mmol/L (22-30); CHLORIDE 105 mmol/L (98-107); GLUCOSE 297 mg/dL (75-110); POTASSIUM 5.3 mmol/L (3.6-5.0); SODIUM 138.3 mmol/L (137-145)
[2018-08-14] MEDS: BUDESONIDE NEB 0.5 MG/2 ML AMPUL NEB SCH ×2 (08:12→19:56)
[2018-08-14] MEDS: INSULIN REG, HUMAN 100 UNIT/ML 3 ML VIAL (PYX) SUBCUT SCH ×4 (08:55→22:09)
[2018-08-14] MEDS ORDERED: METOPROLOL TARTRATE 50 MG TABLET PO SCH (10:00)
[2018-08-14] MEDS: GLIPIZIDE XL 5 MG TAB.ER.24 PO SCH (11:26)
[2018-08-14] MEDS: DOCUSATE SODIUM 100 MG CAPSULE PO SCH ×2 (11:26→18:24)
[2018-08-14] MEDS ORDERED: CEFTRIAXONE 1 GM/D5W RTU 1 GM/50 ML RTUPB IV ONE (15:05)
--- NOTE | 2018-08-14 15:18 | PDOC PROGRESS REPORT ---
Subjective Progress Note for:: 08/14/18 Subjective:: The patient is sitting on room air. She states she is feeling better. She does report getting a little short of breath with ambulation. Reason For Visit: ACUTE EXACERBATION OF COPD Physical Exam Vital Signs: Temp Pulse Resp BP Pulse Ox 97.9 F 86 16 117/48 L 93 08/14/18 12:32 08/14/18 12:32 08/14/18 12:32 08/14/18 12:32 08/14/18 12:32 Intake & Output 08/13/18 08/14/18 08/15/18 06:59 06:59 06:59 Intake Total 700 1000 Balance 700 1000 Weight 62.4 kg General appearance: PRESENT: no acute distress, cooperative, well-developed Head exam: PRESENT: atraumatic, normocephalic Respiratory exam: PRESENT: rhonchi - Slight rhonchi/coarse breath sounds bilater ally., symmetrical. ABSENT: rales, tachypnea, wheezes Cardiovascular exam: PRESENT: RRR, +S1, +S2 GI/Abdominal exam: PRESENT: normal bowel sounds, soft. ABSENT: distended, tenderness Rectal exam: PRESENT: deferred Extremities exam: PRESENT: pedal edema Neurological exam: PRESENT: alert, awake, oriented to person, oriented to place, oriented to time, oriented to situation, CN II-XII grossly intact. ABSENT: motor sensory deficit Psychiatric exam: PRESENT: appropriate affect, normal mood. ABSENT: agitated, anxious Focused psych exam: ABSENT: delusional, restlessness Results Laboratory Results: 08/14/18 06:00 08/14/18 06:00 08/13/18 08/13/18 08/13/18 16:55 16:55 18:22 WBC RBC Hgb Hct MCV MCH MCHC RDW Plt Count Seg Neutrophils % Lymphocytes % Monocytes % Eosinophils % Basophils % Absolute Neutrophils Absolute Lymphocytes Absolute Monocytes Absolute Eosinophils Absolute Basophils Carbonic Acid Cancelled 1.32 HCO3/H2CO3 Ratio Cancelled 18:1 ABG pH Cancelled 7.37 ABG pCO2 Cancelled 43.7 ABG pO2 Cancelled 55.4 L ABG HCO3 Cancelled 24.4 H ABG O2 Saturation Cancelled 87.8 L ABG Base Excess Cancelled -1.1 FiO2 Cancelled ROOM AIR Sodium Potassium Chloride Carbon Dioxide Anion Gap BUN Creatinine Est GFR ( Amer) Est GFR (Non-Af Amer) Glucose Calcium Magnesium Urine Color YELLOW Urine Appearance SLIGHTLY-CLOUDY Urine pH 5.0 Ur Specific [place] 1.012 Urine Protein NEGATIVE Urine Glucose (UA) NEGATIVE Urine Ketones NEGATIVE Urine Blood NEGATIVE Urine Nitrite NEGATIVE Ur Leukocyte Esterase LARGE H Urine WBC (Auto) 24 Urine RBC (Auto) 3 08/14/18 08/14/18 06:00 06:00 WBC 9.2 RBC 4.09 Hgb 12.9 Hct 38.9 MCV 95 MCH 31.5 MCHC 33.1 RDW 13.3 Plt Count 143 L Seg Neutrophils % 87.6 H Lymphocytes % 11.4 L Monocytes % 0.8 L Eosinophils % 0.0 Basophils % 0.2 Absolute Neutrophils 8.1 Absolute Lymphocytes 1.1 Absolute Monocytes 0.1 Absolute Eosinophils 0.0 Absolute Basophils 0.0 Carbonic Acid HCO3/H2CO3 Ratio ABG pH ABG pCO2 ABG pO2 ABG HCO3 ABG O2 Saturation ABG Base Excess FiO2 Sodium 138.3 Potassium 5.3 H Chloride 105 Carbon Dioxide 25 Anion Gap 8 BUN 46 H Creatinine 1.44 H Est GFR ( Amer) 41 L Est GFR (Non-Af Amer) 34 L Glucose 297 H Calcium 9.2 Magnesium 2.1 Urine Color Urine Appearance Urine pH Ur Specific [place] Urine Protein Urine Glucose (UA) Urine Ketones Urine Blood Urine Nitrite Ur Leukocyte Esterase Urine WBC (Auto) Urine RBC (Auto) 08/13/18 08/13/18 08/13/18 12:20 12:20 12:20 Creatine Kinase 51 CK-MB (CK-2) 1.55 Troponin I < 0.012 Cancelled NT-Pro-B Natriuret Pep 465 H Impressions: Chest X-Ray 08/13/18 12:05 IMPRESSION: No acute abnormality of the lungs. Redemonstrated pulmonary hyperinflation with minimal bibasilar fibrotic opacity similar to prior. Assessment and Plan - Diagnosis (1) Acute respiratory failure with hypoxia Is this a current diagnosis for this admission?: Yes Plan: The patient required supplemental oxygen initially. She is on room air. It appears that the lowest her oxygen saturation got was 89% today. This is been on room air. We will see if she can maintain her saturations on room air. (2) Acute exacerbation of chronic obstructive pulmonary disease (COPD) Is this a current diagnosis for this admission?: Yes Plan: Nebulizer therapy as ordered. The patient is not normally on. She will also receive IV steroids. (3) Acute on chronic renal insufficiency Is this a current diagnosis for this admission?: Yes Plan: Creatinine is slightly elevated over her baseline. She did receive gentle IV fluids and her creatinine is improving. Continue to monitor renal function. Serum potassium is slightly elevated but improved from yesterday. This is likely related to her kidney disease. It appears she is baseline at stage III. (4) Diabetes mellitus type 2 in nonobese Is this a current diagnosis for this admission?: Yes Plan: Currently on her oral medications as well as a sliding scale. Will monitor fingersticks. We will keep in mind possible hyperglycemia due to steroids. (5) Hypertension Qualifiers: Hypertension type: essential hypertension Qualified Code(s): I10 - Essential (primary) hypertension Is this a current diagnosis for this admission?: Yes Plan: She is normally on several medications and her lisinopril is currently being held due to her acute kidney injury and hyperkalemia. We will continue to monitor her blood pressure and resume medications appropriately. Metoprolol was listed on an old medication list. She does report that she is no longer on this and so I will discontinue the metoprolol. (6) UTI (urinary tract infection) Qualifiers: Urinary tract infection type: site unspecified Hematuria presence: without hematuria Qualified Code(s): N39.0 - Urinary tract infection, site not specified Is this a current diagnosis for this admission?: Yes Plan: Urinalysis was leukocyte esterase positive. There were white cells and bacteria noted. We will continue ceftriaxone awaiting culture results.
[2018-08-14 15:39] LABS: FREE T3 2.85 pg/mL (2.77-5.27); FREE T4 (FREE THYROXINE) 1.18 ng/dL (0.78-2.19)
[2018-08-14 15:53] LABS: THYROID STIMULATING HORMONE 0.21 uIU/mL (0.47-4.68)
[2018-08-14] MEDS ORDERED: CEFTRIAXONE SODIUM 1,000 MG in DEXTROSE 5%-WATER 50 ML IV ONE (16:00)
[2018-08-14] MEDS ORDERED: CEFTRIAXONE SODIUM 1,000 MG in DEXTROSE 5%-WATER 50 ML IV SCH (18:00)
[2018-08-14] MEDS: GABAPENTIN 300 MG CAPSULE PO SCH (22:15)
[2018-08-15 05:10] LABS: HEMOGLOBIN 12.2 g/dL (12.0-15.5); MEAN CORPUSCULAR HEMOGLOBIN 31.2 pg (27.0-33.4); MEAN CORPUSCULAR VOLUME 95 fl (80-97); PLATELET COUNT 133 10^3/uL (150-450); RED BLOOD COUNT 3.91 10^6/uL (3.72-5.28); RED CELL DISTRIBUTION WIDTH 13.3 % (11.5-14.0)
[2018-08-15] MEDS: HEPARIN SOD (PORCINE) 5,000 UNIT/ML 1 ML SYRINGE SUBCUT SCH ×2 (05:26→13:43)
[2018-08-15 05:27] LABS: ANION GAP 9 (5-19); BLOOD UREA NITROGEN 44 mg/dL (7-20); CALCIUM 8.8 mg/dL (8.4-10.2); CARBON DIOXIDE 24 mmol/L (22-30); CHLORIDE 108 mmol/L (98-107); GLUCOSE 175 mg/dL (75-110); POTASSIUM 4.6 mmol/L (3.6-5.0); SODIUM 141.2 mmol/L (137-145)
[2018-08-15] MEDS: PANTOPRAZOLE SODIUM 40 MG TABLET.DR PO SCH (05:32)
[2018-08-15] MEDS: METHYLPREDNISOLONE INJ 40 MG/1 ML SDV IV SCH ×2 (05:32→13:57)
[2018-08-15 05:56] LABS: ABSOLUTE LYMPHOCYTES# (MANUAL) 0.4 10^3/uL (0.5-4.7); ABSOLUTE MONOCYTES # (MANUAL) 0.2 10^3/uL (0.1-1.4); ABSOLUTE NEUTROPHILS# (MANUAL) 18.4 10^3/uL (1.7-8.2); BASOPHILS % (MANUAL) 0 % (0-2); EOSINOPHILS % (MANUAL) 0 % (0-6); LYMPHOCYTES % (MANUAL) 2 % (13-45); MONOCYTES % (MANUAL) 1 % (3-13); SEGMENTED NEUTROPHILS % (MAN) 97 % (42-78); TOTAL CELLS COUNTED 100
[2018-08-15 05:57] LABS: HELMET CELLS SLIGHT; OVALOCYTES SLIGHT; POIKILOCYTOSIS 1+; TEAR DROP CELLS SLIGHT; TOXIC GRANULATION 1+
[2018-08-15 05:58] LABS: PLATELET COMMENT ADEQUATE
[2018-08-15] MEDS: IPRATROPIUM BROMIDE 0.02% NEB 0.5 MG/2.5 ML AMPUL NEB SCH ×2 (08:01→15:41)
[2018-08-15] MEDS: BUDESONIDE NEB 0.5 MG/2 ML AMPUL NEB SCH (08:01)
[2018-08-15] MEDS: LEVALBUTEROL HCL NEB 1.25 MG/3 ML AMPUL NEB SCH ×2 (08:01→15:41)
[2018-08-15] MEDS: INSULIN REG, HUMAN 100 UNIT/ML 3 ML VIAL (PYX) SUBCUT SCH ×2 (09:17→12:50)
[2018-08-15] MEDS: DOCUSATE SODIUM 100 MG CAPSULE PO SCH (09:35)
[2018-08-15] MEDS: GABAPENTIN 300 MG CAPSULE PO SCH (09:36)
[2018-08-15] MEDS: GLIPIZIDE XL 5 MG TAB.ER.24 PO SCH (09:36)
[2018-08-15] MEDS ORDERED: LISINOPRIL 10 MG TABLET PO SCH (10:00)
[2018-08-15] MEDS ORDERED: ASPIRIN 81 MG TABLET, CHEWABLE PO SCH (10:00)
[2018-08-15 16:39] VITALS: BP 111/33
--- NOTE | 2018-08-15 19:41 | PDOC DISCHARGE SUMMARY ---
General - Admit/Disc Date/PCP Admission Date/Primary Care Provider: 08/13/18 20:28 KRYSTAL HOLLAND MD Discharge Date: 08/15/18 - Discharge Diagnosis (1) Acute respiratory failure with hypoxia Is this a current diagnosis for this admission?: Yes Summary: The patient was initially hypoxic but quickly transitioned to room air. On room air for the last 36 hours her oxygen saturations have been greater than 90% even with ambulation. Her breathing is more comfortable. She will be discharged home. (2) Acute exacerbation of chronic obstructive pulmonary disease (COPD) Is this a current diagnosis for this admission?: Yes Summary: The patient has never been on inhaler before. I suggested that she use a co mbination inhaler. I also provided a rescue inhaler. Patient is going to follow-up with her primary care physician. I explained that pulmonary function testing would be able to determine her exact diagnosis. She will continue the current treatment as well as azithromycin for bronchitis associated COPD until she sees her primary care. (3) Acute on chronic renal insufficiency Is this a current diagnosis for this admission?: Yes Summary: With her acute illness the patient likely was slightly hypovolemic. This contributed to her acute on chronic kidney failure. With gentle fluids she is back to baseline. (4) Diabetes mellitus type 2 in nonobese Is this a current diagnosis for this admission?: Yes Summary: She will return to her home medication regimen. Continue diabetic diet. (5) Hypertension Is this a current diagnosis for this admission?: Yes Summary: Blood pressure well controlled on current regimen. Continue same. (6) UTI (urinary tract infection) Is this a current diagnosis for this admission?: No Summary: Urine culture is no growth therefore she does not have a urinary tract infection. - Additional Information Resuscitation Status: Full Code Discharge Diet: Cardiac, Diabetic Discharge Activity: Activity As Tolerated, Balance Activity w/Rest Prescriptions: Albuterol Sulfate [Proair Hfa Inhalation Aerosol 8.5 gm Mdi] 1 puff IH Q4 PRN #1 mdi PRN Reason: Azithromycin [Zithromax 250 mg Tablet] 250 mg PO ASDIR PRN #6 tablet PRN Reason: Fluticasone/Salmeterol [Advair HFA 115-21 mcg Inhaler] 2 puff IH BID #1 mdi Home Medications: Aspirin [Aspirin 81 mg Chewable Tablet] 162 mg PO DAILY 02/11/11 Folic Acid 0.4 mg PO DAILY 02/11/11 Hydroxychloroquine Sulfate [Plaquenil 200 mg Tablet] 200 mg PO DAILY 02/11/11 Multivitamins W-Minerals/Lut [Centrum Silver Tablet] 1 each PO DAILY 02/11/11 Potassium Chloride [Klor-Con 10 Meq Capsule ER] 10 meq PO DAILY 02/11/11 Glipizide [Glipizide ER] 5 mg PO DAILY 12/01/13 Lisinopril 10 mg PO DAILY 12/01/13 Celecoxib [Celebrex 200 mg Capsule] 200 mg PO DAILY 08/13/18 Gabapentin [Neurontin 300 mg Capsule] 300 mg PO Q12 08/13/18 Olopatadine HCl [Patanol 0.1% Oph Soln 5 ml] 1 drop OU BID 08/13/18 Acetaminophen [Tylenol 325 mg Tablet] 650 mg PO Q4HP PRN tablet 08/15/18 Albuterol Sulfate [Proair Hfa Inhalation Aerosol 8.5 gm Mdi] 1 puff IH Q4 PRN #1 mdi 08/15/18 Azithromycin [Zithromax 250 mg Tablet] 250 mg PO ASDIR PRN #6 tablet 08/15/18 Docusate Sodium [Colace 100 mg Capsule] 100 mg PO BID capsule 08/15/18 Fluticasone/Salmeterol [Advair HFA 115-21 mcg Inhaler] 2 puff IH BID #1 mdi 08/15/18 History of Present Illness Patient complains of: Slowly progressive increasing shortness of breath History of Present Illness: ABRAHAM MCCARTY is a 88 year old female who reports a history of mild dyspnea worsened with exertion over the last several months. Lately she has been experiencing more significant shortness of breath with the same amount of exertion.. Over the last 24 hours her dyspnea became worse and was present at rest. She denies any history of COPD. Because of her hypoxia requiring oxygen she was referred to the hospital service for admission. Hospital Course Hospital Course: The patient had an unremarkable hospital course. With nebulizer treatments she was able to convert to room air but then 36 hours. For the last 36 hours she has been on room air with adequate oxygenation even with ambulation. She still has coarse breath sounds. She will be discharged with a combination inhaler as well as rescue inhaler. I have also prescribed azithromycin as I feel she may have COPD with bronchitis. I encouraged her to follow-up with her primary care physician next week. Physical Exam Vital Signs: Temp Pulse Resp BP Pulse Ox 98.2 F 69 19 111/33 L 100 08/15/18 16:00 08/15/18 16:00 08/15/18 16:00 08/15/18 16:00 08/15/18 16:00 Intake & Output 08/14/18 08/15/18 08/16/18 06:59 06:59 06:59 Intake Total 700 1840 Balance 700 1840 Weight 62.4 kg General appearance: PRESENT: no acute distress, cooperative, well-developed Head exam: PRESENT: atraumatic, normocephalic Respiratory exam: PRESENT: rhonchi - Coarse breath sounds., symmetrical, unlabored. ABSENT: accessory muscle use, rales, tachypnea, wheezes Cardiovascular exam: PRESENT: RRR, +S1, +S2 GI/Abdominal exam: PRESENT: normal bowel sounds, soft. ABSENT: distended, tenderness Rectal exam: PRESENT: deferred Musculoskeletal exam: PRESENT: ambulatory, normal inspection Neurological exam: PRESENT: alert, awake, oriented to person, oriented to place, oriented to time, oriented to situation, CN II-XII grossly intact. ABSENT: motor sensory deficit Psychiatric exam: PRESENT: appropriate affect, normal mood. ABSENT: agitated, anxious Focused psych exam: ABSENT: delusional, restlessness Results Laboratory Results: 08/15/18 04:57 08/15/18 04:57 08/15/18 08/15/18 04:57 04:57 WBC 19.0 H D RBC 3.91 Hgb 12.2 Hct 37.0 MCV 95 MCH 31.2 MCHC 33.0 RDW 13.3 Plt Count 133 L Seg Neutrophils % Not Reportable Lymphocytes % Not Reportable Monocytes % Not Reportable Eosinophils % Not Reportable Basophils % Not Reportable Absolute Neutrophils Not Reportable Absolute Lymphocytes Not Reportable Absolute Monocytes Not Reportable Absolute Eosinophils Not Reportable Absolute Basophils Not Reportable Sodium 141.2 Potassium 4.6 Chloride 108 H Carbon Dioxide 24 Anion Gap 9 BUN 44 H Creatinine 1.12 Est GFR ( Amer) 55 L Est GFR (Non-Af Amer) 46 L Glucose 175 H Calcium 8.8 Magnesium 2.0 08/13/18 08/13/18 08/13/18 12:20 12:20 12:20 Creatine Kinase 51 CK-MB (CK-2) 1.55 Troponin I < 0.012 Cancelled NT-Pro-B Natriuret Pep 465 H Impressions: Chest X-Ray 08/13/18 12:05 IMPRESSION: No acute abnormality of the lungs. Redemonstrated pulmonary hyperinflation with minimal bibasilar fibrotic opacity similar to prior. Qualifiers - * PATIENT BEING DISCHARGED WITH ANY OF THE FOLLOWING DIAGNOSIS: No Acute Heart Failure Is this a Heart Failure Patient?: No Plan Time Spent: Greater than 30 Minutes
== END 2018-08-15 17:40 | disposition home or self-care (01) | DRG 189 ==
LOC: ER 11:37 → EH 20:28 → 4N 08-14 00:45
PROVIDERS: ADMIT Emergency Medicine; ATTEND Emergency Medicine
DX: J96.01 Acute respiratory failure with hypoxia (principal); J44.1 Chronic obstructive pulmonary disease with (acute) exacerbation; I13.0 Hypertensive heart and chronic kidney disease with heart failure and stage 1 through stage 4 chronic kidney disease, or unspecified chronic kidney disease; N17.9 Acute kidney failure, unspecified; N39.0 Urinary tract infection, site not specified; I50.9 Heart failure, unspecified; E11.22 Type 2 diabetes mellitus with diabetic chronic kidney disease; N18.3 Chronic kidney disease, stage 3 (moderate); Z87.891 Personal history of nicotine dependence; Z79.84 Long term (current) use of oral hypoglycemic drugs; Z79.82 Long term (current) use of aspirin; Z79.899 Other long term (current) drug therapy
CPT/HCPCS: 36415; 71045; 80048; 80053; 81001; 82550; 82553; 82803; 82962; 83036; 83735; 83880; 84439; 84443; 84481; 84484; 85025; 87040; 87086; 93005; 93010; 96361; 96374; 96375; 99285; J0696; J1815; J1940; J2920; J2930; J3490; J7030; J7060; J7120; J7614; J7620

== ENCOUNTER 2019-03-04 18:07 | Emergency (ER) | payer MEDICARE, OTHER ==
[2019-03-04] MEDS ORDERED: DIPH/PERTUSS(ACELL)/TETANUS VAC/PF 0.5 ML SYR (>=10YO) IM ONE (18:18)
--- NOTE | 2019-03-04 18:19 | ER Document Report ---
ED Medical Screen (RME) - General Chief Complaint: Laceration Stated Complaint: FALL/LACERATION ABOVE LEFT EYE Time Seen by Provider: 03/04/19 18:14 Primary Care Provider: KRYSTAL HOLLAND MD [Primary Care Provider] - Follow up as needed TRAVEL OUTSIDE OF THE [place] IN LAST 30 DAYS: No - HPI Notes: 03/04/19 18:19 88-year-old female to the emergency department with complaints of a left eyebrow laceration that occurred just prior to arrival. Patient states that she was putting away Jell-O when she turned around and she tripped and fell. She states that she thinks she hit her face on her glasses which broke. She has pain and swelling to the eyebrow region as well as to the cheek. She is not sure of her tetanus status. She denies any loss of consciousness. She takes 2 back baby aspirin a day but no other blood thinners. She states that she only has pain when she touches her face. Performed a medical screening exam on patient and determined she will need furt her management and evaluation by me inside provider. I have initiated orders to machine adjuster helper in expedite her care today. - Related Data Allergies/Adverse Reactions: diclofenac sodium [From Voltaren] Allergy (Unknown, Verified 08/13/18 11:38) Past Medical History - Past Medical History Cardiac Medical History: Reports: Hx Congestive Heart Failure, Hx Hypertension, Hx Peripheral Vascular Disease - Blocked artery in the right leg with history of claudication Pulmonary Medical History: Denies: Hx Asthma, Hx COPD, Hx Intubation, Hx Respiratory Failure Neurological Medical History: Denies: Hx Seizures Endocrine Medical History: Reports: Hx Diabetes Mellitus Type 2. Denies: Hx Diabetes Mellitus Type 1, Hx Hyperthyroidism, Hx Hypothyroidism Renal/ Medical History: Denies: Hx Peritoneal Dialysis GI Medical History: Denies: Hx Cirrhosis, Hx Hepatitis Musculoskeltal Medical History: Reports Hx Arthritis, Denies Hx Gout Skin Medical History: Denies Hx Eczema, Denies Hx Psoriasis Infectious Medical History: Denies: Hx Hepatitis Past Surgical History: Reports: Hx Appendectomy, Hx Hysterectomy, Hx Orthopedic Surgery - left shoulder/left knee, Hx Tonsillectomy - Immunizations Hx Diphtheria, Pertussis, Tetanus Vaccination: Yes Doctor's Discharge - Discharge Referrals: KRYSTAL HOLLAND MD [Primary Care Provider] - Follow up as needed
--- NOTE | 2019-03-04 19:03 | RADIOLOGY REPORT (SQ) ---
EXAM DESCRIPTION: CT HEAD WITHOUT COMPLETED DATE/TIME: 03/04/2019 6:53 pm REASON FOR STUDY: fall, facial laceration, cheek ecchymosis COMPARISON: 06/23/2017 TECHNIQUE: Axial images acquired through the brain without intravenous contrast. Images reviewed wi th bone, brain and subdural windows. Additional sagittal and coronal reconstructions were generated. Images stored on PACS. All CT scanners at this facility use dose modulation, iterative reconstruction, and/or weight based d osing when appropriate to reduce radiation dose to as low as reasonably achievable (ALARA). [facility]: Dose Right [facility]: CareDose [facility]: Dose Right [facility]: Teradose 4D [facility]: Smart [employer] RADIATION DOSE: CT Rad equipment meets quality standard of care and radiation dose reduction techniq ues were employed. CTDIvol: 53.2 mGy. DLP: 964 mGy-cm. mGy. LIMITATIONS: None. FINDINGS: VENTRICLES: Normal size and contour. CEREBRUM: No masses. No hemorrhage. No midline shift. No evidence for acute infarction. Normal gra y/white matter differentiation. No areas of low density in the white matter. CEREBELLUM: No masses. No hemorrhage. No alteration of density. No evidence for acute infarction. EXTRAAXIAL SPACES: No fluid collections. No masses. ORBITS AND GLOBE: No intra- or extraconal masses. Normal contour of globe without masses. CALVARIUM: No fracture. PARANASAL SINUSES: No fluid or mucosal thickening. SOFT TISSUES: No mass or hematoma. OTHER: No other significant finding. IMPRESSION: NORMAL BRAIN CT WITHOUT CONTRAST. EVIDENCE OF ACUTE STROKE: NO. COMMENT: Quality ID # 436: Final reports with documentation of one or more dose reduction techniques (e.g., Automated exposure control, adjustment of the mA and/or kV according to patient size, use of iterative reconstruction technique) TECHNICAL DOCUMENTATION: JOB ID: [id number] [employer]- All Rights Reserved Reading location - IP/workstation name: [email or web address]
--- NOTE | 2019-03-04 19:07 | RADIOLOGY REPORT (SQ) ---
EXAM DESCRIPTION: CT FACIAL AREA WITHOUT COMPLETED DATE/TIME: 03/04/2019 6:53 pm REASON FOR STUDY: fall, facial laceration, cheek ecchymosis COMPARISON: None. TECHNIQUE: Noncontrasted images through the facial bones and orbits windowed for bone and soft tissu e. Additional coronal and sagittal reconstructed images reviewed. All images stored on PACS. All CT scanners at this facility use dose modulation, iterative reconstruction, and/or weight based d osing when appropriate to reduce radiation dose to as low as reasonably achievable (ALARA). [facility]: Dose Right [facility]: CareDose [facility]: Dose Right [facility]: Teradose 4D [facility]: [employer] RADIATION DOSE: CT Rad equipment meets quality standard of care and radiation dose reduction techniq ues were employed. CTDIvol: 30.4 mGy. DLP: 551 mGy-cm. mGy. LIMITATIONS: None. FINDINGS: FACIAL BONES: No fracture or bone lesion. ORBITS: Intact. No fracture. Symmetric intact globes and retroorbital soft tissues. PARANASAL SINUSES: Clear. No significant mucosal thickening, mass or fluid. No nasal polyps. Maxill luther sinus outlets are patent. SOFT TISSUES: No mass or edema. INFERIOR BRAIN: Limited view. No acute findings. OTHER: Degenerative joint changes in the TMJs. IMPRESSION: TMJ degenerative changes. No acute finding in the face. TECHNICAL DOCUMENTATION: JOB ID: [id number] Quality ID # [id number]: Final reports with documentation of one or more dose reduction techniques (e.g., Au tomated exposure control, adjustment of the mA and/or kV according to patient size, use of iterative reconstruction technique) 2010 [employer]- All Rights Reserved Reading location - IP/workstation name: [email or web address]
[2019-03-04] MEDS: LIDOCAINE 1% INJ-PF (10 MG/ML) 30 ML SDV INJ ONE ×2 (20:21→22:34)
[2019-03-04] MEDS ORDERED: LIDOCAINE 1%/EPINEPHRINE INJ 20 ML VIAL INJ ONE (21:38)
[2019-03-04] MEDS ORDERED: LIDOCAINE 2% INJ (20 MG/ML) 20 ML MDV INJ ONE (21:39)
--- NOTE | 2019-03-04 23:05 | ER Document Report ---
Entered by SHAHEED ROCK SCRIBE 03/04/19 2136 Acting as scribe for:RENAE LOAIZA IV, MD ED Wound - General Chief Complaint: Laceration Stated Complaint: FALL/LACERATION ABOVE LEFT EYE Time Seen by Provider: 03/04/19 18:14 Primary Care Provider: KRYSTAL HOLLAND MD [Primary Care Provider] - 03/10/19 (Follow-up with your primary care provider on 03/10/2019 for suture removal.) Mode of Arrival: Ambulatory Information source: Patient Notes: This 88-year-old female patient presents to the emergency department today with complaints of a fall just prior to arrival. 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 Patient denies feeling lightheaded, dizzy, or have any symptoms prior to the fall. Patient states she hit the kitchen floor face first. Patient denies any loss of consciousness, headache, or dizziness now either. TRAVEL OUTSIDE OF THE [place] IN LAST 30 DAYS: No - Related Data Allergies/Adverse Reactions: diclofenac sodium [From Voltaren] Allergy (Unknown, Verified 08/13/18 11:38) Past Medical History - General Information source: Patient - Social History Smoking Status: Never Smoker Cigarette use (# per day): No Chew tobacco use (# tins/day): No Frequency of alcohol use: None Drug Abuse: None Lives with: Family Family History: Reviewed & Not Pertinent, DM, Malignancy Patient has suicidal ideation: No Patient has homicidal ideation: No - Past Medical History Cardiac Medical History: Reports: Hx Congestive Heart Failure, Hx Hypertension, Hx Peripheral Vascular Disease - Blocked artery in the right leg with history of claudication Endocrine Medical History: Reports: Hx Diabetes Mellitus Type 2 Musculoskeletal Medical History: Reports Hx Arthritis Past Surgical History: Reports: Hx Appendectomy, Hx Hysterectomy, Hx Orthopedic Surgery - left shoulder/left knee, Hx Tonsillectomy - Immunizations Hx Diphtheria, Pertussis, Tetanus Vaccination: Yes Hx Pneumococcal Vaccination: 01/12/11 Review of Systems - Review of Systems Constitutional: No symptoms reported EENT: No symptoms reported Cardiovascular: No symptoms reported Respiratory: No symptoms reported Gastrointestinal: No symptoms reported Genitourinary: No symptoms reported Female Genitourinary: No symptoms reported Musculoskeletal: No symptoms reported Skin: See HPI, Other - would to left forehead Hematologic/Lymphatic: No symptoms reported Neurological/Psychological: No symptoms reported -: Yes All other systems reviewed and negative Physical Exam - Vital signs Vitals: Pulse BP 74 133/34 H 03/04/19 18:16 03/04/19 18:16 - Notes Notes: Physical Exam: General: Alert, appears well. HEENT: Normocephalic. PERRL. Extraocular movements intact. Oropharynx clear. Neck: Supple. Non-tender. Respiratory: No respiratory distress. Clear and equal breath sounds bilaterally. Cardiovascular: Regular rate and rhythm. Abdominal: Normal Inspection. Non-tender. No distension. Normal Bowel Sounds. Back: No gross abnormalities. Extremities: Moves all four extremities. Upper extremities: Normal inspection. Normal ROM. Lower extremities: Normal inspection. No edema. Normal ROM. Neurological: Normal cognition. AAOx4. Normal speech. Psychological: Normal affect. Normal Mood. Skin: See procedure note Course - Re-evaluation Re-evalutation: 03/04/19 22:45 Patient is sitting up in bed, alert and oriented x3, in no acute distress. Results of imaging discussed with patient and patient's family. All questions were answered. Patient patient's family instructed on care of laceration, went to take the stitches out, signs and symptoms to watch out for and reasons to return to the emergency department by calling 911. Patient and patient's family expressed understanding of discussion. - Vital Signs Vital signs: Temp Pulse Resp BP Pulse Ox 97.5 F 71 14 136/52 H 97 03/04/19 23:06 03/04/19 23:06 03/04/19 23:06 03/04/19 23:06 03/04/19 23:06 - Diagnostic Test Radiology reviewed: Reports reviewed Procedures - Laceration/Wound Repair Left Upper Face Time completed: 22:46 - Patient tolerated procedure well without complications Wound length (cm): 6 - Patient has a stellate appearing laceration on her left forehead. Wound is hemostatic. Galea does not appear to be involved. Edges of the wound are somewhat macerated. Wound's Depth, Shape: Irregular Laceration pre-procedure: Sterile PPE donned, Chloraprep applied Anesthetic type: 1% Lidocaine w/epi Volume Anesthetic (mLs): 3 Wound explored: Clean Irrigated w/ Saline (mLs): 20 Wound Repaired With: Sutures Suture Size/Type: 6:0, Prolene Number of Sutures: 12 - Pursestring suture was used to close the wound initially a horizontal mattress suture was also used to reapproximate inferior edges of the laceration. Number Deep Layer Sutures: 0 Post-procedure wound care: Other - neosporin dressing applied Post-procedure NV exam normal: Yes Complications: No Discharge - Discharge Clinical Impression: Laceration of forehead, complicated Condition: Good Disposition: HOME, SELF-CARE Instructions: Antibiotic Ointment Protection (ON LICENSE OF [facility]), Laceration Care (ON LICENSE OF [facility]), Tetanus Immunization Given (ON LICENSE OF [facility]) Additional Instructions: HOME CARE INSTRUCTIONS & INFORMATION: Thank you for choosing us for your medical needs. We hope you're satisfied with the care you received. After you leave, you must properly care for your problem and, at the same time, observe its progress. Any condition can change. Some illnesses can change rapidly over hours or days. If your condition worsens, return to the Emergency Department or see your physician promptly. ABOUT YOUR X-RAYS AND EKG'S: If you had an EKG or X-rays taken, they have been read by the Emergency Physician. The X-rays and EKG's will also be read by a Radiologist or Manager Science within 24 hours. If discrepancies are noted, you will be notified by telephone. Please be certain the ED has a correct telephone number & address where you can be reached. Also, realize that some fractures or abnormalities do not show up on initial X-rays. If your symptoms continue, see your physician. ABOUT YOUR LABORATORY TEST: If you had laboratory tests, the results have been reviewed by the Emergency Physician. Some test results (for example cultures) may not be available for several days. You will be contacted if any test result shows you need additional treatment. Please be certain the ED has a correct telephone number and address where you can be reached. ABOUT YOUR MEDICATIONS: You will receive instructions on how to take your medicine on the prescription label you receive. Additional information may be provided by the Pharmacy. If you have questions afterwards, call the ED for clarification or further instructions. Some prescribed medications may cause drowsiness. Do not perform tasks such as driving a car or operating machinery without consulting your Pharmacist. If you feel you need a refill of pain medication, your condition will need re-evaluation. Please do not call for a refill of any medication. ABOUT YOUR SIGNATURE: Signature of this document acknowledges to followin. Understanding that you received emergency treatment and that you may be released before al medical problems are known or treated. Please be certain the ED has a correct phone number & address where you can be reached. 2. Acknowledgement that you will arrange for follow-up care as recommended. 3. Authorization for the Emergency Physician to provide information to your follow-up Physician in order to maximize your care. AT ANY TIME, IF YOUR SYMPTOMS CHANGE SIGNIFICANTLY OR WORSEN OR YOU DEVELOP NEW SYMPTOMS, RETURN TO THE EMERGENCY DEPARTMENT IMMEDIATELY FOR RE-EVALUATION. OUR GOAL IS TO PROVIDE EXCELLENT MEDICAL CARE! WE HOPE THAT WE HAVE MET YOUR EXPECTATIONS DURING YOUR EMERGENCY DEPARTMENT VISIT AND THAT YOU FEEL YOU HAVE RECEIVED EXCELLENT CARE! Return to the Emergency Department without delay if any worse. Referrals: KRYSTAL HOLLAND MD [Primary Care Provider] - 03/10/19 (Follow-up with your primary care provider on 03/10/2019 for suture removal.) I personally performed the services described in the documentation, reviewed and edited the documentation which was dictated to the scribe in my presence, and it accurately records my words and actions.
[2019-03-04] MEDS ORDERED: NEOMY/BACITRAC ZN/POLY OINT 15 GM TP ONE (23:07)
[2019-03-04 23:10] VITALS: BP 136/52
== END 2019-03-04 23:26 | disposition home or self-care (01) ==
LOC: ER 18:07
DX: S01.81XA Laceration without foreign body of other part of head, initial encounter (principal); W19.XXXA Unspecified fall, initial encounter; Y93.89 Activity, other specified; Y92.000 Kitchen of unspecified non-institutional (private) residence as the place of occurrence of the external cause; I10 Essential (primary) hypertension; E11.51 Type 2 diabetes mellitus with diabetic peripheral angiopathy without gangrene; Z88.6 Allergy status to analgesic agent
CPT/HCPCS: 12014; 99283; 90471; 70450; 70486; 90715; J3490